=== PATIENT | female | born 1975 | race Caucasian/White ===

== ENCOUNTER 2018-12-31 08:49 | Emergency (ER) | payer MEDICAID, OTHER ==
[~2018-12-31] VITALS: Wt 106.0 kg
--- NOTE | 2018-12-31 10:35 | ERD ---
ER Documentation Chief Complaint Chief Complaint FLU SYMPTOMS X 1 WEEK WITH COUGH HPI 43-year-old female previously healthy, presents to the emergency department complaining of sudden onset of dizziness, chest pain, palpitations associated with perioral numbness and finger paresthesias that occurred before flying to [place]. The patient states that she has been under a lot of stress and persistent worrying about health and family. She has had similar episodes in the past but less intense. She is not taking any medication at this time. History provided by patient. ROS All systems reviewed and are negative except as per history of present illness. Medications Home Meds Active Scripts Lorazepam* (Ativan*) 0.5 Mg Tablet, 0.5 MG PO Q8H PRN for ANXIETY, #10 TAB Prov:LILI RUSSELL MD 12/31/18 Allergies Allergies: Coded Allergies: No Known Allergy (Unverified , 12/31/18) FmHx Family History: No diabetes, No coronary disease Physical Exam Vitals Vital Signs Date Temp Pulse Resp B/P (MAP) Pulse Ox O2 O2 Flow FiO2 Time Delivery Rate 12/31/18 98.0 91 18 172/75 99 08:53 (107) Physical Exam Const: No acute distress Head: Atraumatic Eyes: Normal Conjunctiva ENT: Normal External Ears, Nose and Mouth. Neck: Full range of motion. No meningismus. Resp: Clear to auscultation bilaterally Cardio: Regular rate and rhythm, no murmurs Abd: Soft, non tender, non distended. Normal bowel sounds Skin: No petechiae or rashes Back: No midline or flank tenderness Ext: No cyanosis, or edema Neur: Awake and alert Psych: Normal Mood and Affect Results 24 hrs Current Medications Medications Dose Sig/Ariana Start Time Status Last (Trade) Ordered Route PRN Stop Time Admin Dose Reason Admin Lorazepam 0.5 mg ONCE ONCE 12/31/18 DC 12/31/18 (Ativan) PO 11:30 12/31/18 11:21 11:31 EKG read by me: Rate/Rhythm: Regular rate and rhythm at a rate of 89 Intervals: Normal No acute ST changes. No T wave inversion Impression: No evidence of acute ischemia or arrhythmia Procedures/MDM Patient presents complaining of one episode today of chest pain, palpitations, shortness of breath and perioral paresthesias. Vital signs stable, Physical exam unremarkable, neurovascular exam intact. Differential diagnosis include but not limited to: Depression, anxiety, migraine, thyroid disease, electrolyte imbalance. Low suspicion for acute coronary event, aortic dissection, CVA. Pertinent Data: 12 Lead ECG: Sinus rhythm, no ST changes, normal T wave, normal intervals Physical examination and clinical presentation consistent most likely with anxiety. During the ED course the patient remained stable, no new complaints. The patient received treatment with lorazepam presenting overall improvement of the sympto ms. Results and clinical impression discussed with patient who agrees with management. The patient is stable to be treated outpatient and will be discharged home with a Rx for lorazepam, some side effects of prescribed medications (headache, rash, nausea, vomiting, diarrhea, drowsiness, habituation, bleeding, hypertension, interactions with other medications) were reviewed. The patient was instructed to follow up with the primary care provider in the next 48h. If symptoms persist, worsen or new symptoms develop, then patient should return to the ED immediately. Instructions explained and given directly by me to the patient with acknowledgment and demonstrated understanding. Disclaimer: Inadvertent spelling and grammatical errors are likely due to EHR/di ctation software use and do not reflect on the overall quality of patient care. Also, please note that the electronic time recorded on this note does not necessarily reflect the actual time of the patient encounter. Departure Diagnosis: Primary Impression: Anxiety Condition: Stable Patient Instructions: Your Body's Response to Anxiety Additional Instructions: Muchas nadia por [facility] para layne servicio. Esperamos que en layne visita a la juanita de emergencia layne problema medico haya sido solucionado y que se sienta mucho mejor. Para estar seguros que layne mejoria sigue en proceso, le pedimos el favor de hacer waqas vero de seguimiento medico con layne doctor primario en los proximos 2-4 bass. Lleve con usted estos documentos y las medicinas recetadas. Si luis sintomas empeoran, NO SE ESPERE, por favor regrese a juanita de emergencia INMEDIATAMENTE. En edgard que usted no tenga un mdico de atencin primaria: Llame al mdico o clnica comunitaria de referencia que aparece abajo jaqueline las horas de consultorio para hacer waqas vero para que le vean. CLINICAS: [facility] [phone] [facility] [phone] [facility] [phone] [address] [place] [id number] [phone] [place] [phone] [address] [facility]. [phone] LILI CASH MD Dec 31, 2018 10:35
[2018-12-31] MEDS ORDERED: LORA-441 PO (11:29)
[2018-12-31] MEDS ORDERED: LORAZEPAM 0.5 MG TAB PO ONE (11:30)
[2018-12-31 12:18] VITALS: BP 143/90; PULSE 76; RESP 18
== END 2018-12-31 12:25 | disposition home or self-care (01) ==
LOC: FTE 08:49
DX: F41.9 Anxiety disorder, unspecified (principal); R07.9 Chest pain, unspecified
CPT/HCPCS: 71046; 93005; Z7502; Z7610

== ENCOUNTER 2019-06-09 04:21 | Emergency (ER) | payer OTHER ==
[~2019-06-09] VITALS: Ht 165.1 cm; Wt 109.3 kg
[~2019-06-09 04:21] MED LIST: LORA-441 PO; NAPR-985 PO
[2019-06-09 04:27] VITALS: Ht 165.1 cm; Wt 109.3 kg
[2019-06-09 06:18] VITALS: BP 142/75; PULSE 72; RESP 18
== END 2019-06-09 06:19 | disposition home or self-care (01) ==
LOC: FTE 04:21
DX: R53.1 Weakness (principal)
CPT/HCPCS: 36415; 80053; 81001; 81025; 85025; 93005

== ENCOUNTER 2019-06-27 00:56 | Emergency (ER) | payer OTHER ==
[~2019-06-27] VITALS: Ht 167.6 cm; Wt 107.7 kg
[2019-06-27 00:59] VITALS: Ht 167.6 cm; Wt 107.7 kg
[2019-06-27] MEDS ORDERED: ONDANSETRON 4 MG INJ IV STA (01:56)
[2019-06-27] MEDS ORDERED: FAMOTIDINE 20 MG TAB PO STA (01:56)
[2019-06-27] MEDS ORDERED: SOD CHLORIDE 0.9% 1,000 ML IV STA (01:56)
[2019-06-27] MEDS ORDERED: LIDOCAINE/MYLANTA 40 ML BTL PO STA (01:56)
[2019-06-27 03:00] VITALS: BP 128/88; PULSE 98; RESP 19
== END 2019-06-27 03:28 | disposition home or self-care (01) ==
LOC: E/R 00:56
DX: R10.13 Epigastric pain (principal); I10 Essential (primary) hypertension
CPT/HCPCS: 36415; 80053; 81001; 83690; 85025; 96374; J2405; J7030; Z7502; Z7610